=== PATIENT | male | born 1970 | race Two or more races ===

== ENCOUNTER 2016-11-03 20:14 | Emergency (ER) | payer SELFPAY ==
[~2016-11-03] VITALS: Ht 172.7 cm; Wt 72.6 kg
--- NOTE | 2016-11-03 20:15 | NUR ---
Dr Giles at bedside.
--- NOTE | 2016-11-03 20:17 | NUR ---
xr at bedside.
--- NOTE | 2016-11-03 20:17 | NUR ---
started a saline lock on right ac g18, blood drawn and sent to lab.
--- NOTE | 2016-11-03 20:20 | NUR ---
xr at bedside.
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
[2016-11-03 21:14] LABS: BASOPHILS # (AUTO) 0.1 /CMM (0.0-0.2); BASOPHILS % (AUTO) 0.6 % (0.0-2.0); EOSINOPHILS # (AUTO) 0.3 /CMM (0.0-0.7); EOSINOPHILS % (AUTO) 3.9 % (0.0-6.0); HEMATOCRIT 40 % (39-51); HEMOGLOBIN 13.4 g/dL (13.5-17.5); LYMPHOCYTES # (AUTO) 2.5 /CMM (0.8-4.8); LYMPHOCYTES % (AUTO) 28.2 % (20.0-44.0); MEAN CORPUSCULAR HEMOGLOBIN 32 PG (26.0-33.0); MEAN CORPUSCULAR HGB CONC 34 g/dl (31.0-36.0); MEAN CORPUSCULAR VOLUME 93 fL (80-96); MONOCYTES # (AUTO) 0.5 /CMM (0.1-1.30); MONOCYTES % (AUTO) 5.3 % (2.0-12.0); NEUTROPHILS # (AUTO) 5.4 /CMM (1.8-8.9); PLATELET COUNT (AUTO) 314 /CMM (150-450); RDW COEFFICIENT OF VARIATION 13.4 (11.5-15.0); RED BLOOD CELL COUNT(AUTO) 4.26 MIL/uL (4.5-6.0); WHITE BLOOD COUNT (AUTO) 8.8 K/uL (4.3-11.0)
--- NOTE | 2016-11-03 21:22 | NUR ---
lapd at bedside.
[2016-11-03 21:51] LABS: ALBUMIN 3.8 g/dL (3.4-5.0); BILIRUBIN,TOTAL 0.3 mg/dL (0.2-1.0); CALCIUM, SERUM 8.6 mg/dL (8.5-10.1); CREATININE 1.1 mg/dL (0.6-1.3); POTASSIUM 3.7 mmol/L (3.5-5.1); TOTAL PROTEIN, SERUM 7.2 g/dL (6.4-8.2)
[2016-11-03] MEDS ORDERED: IV NS 0.9% 250 ML IV ONE (21:52)
[2016-11-03] MEDS ORDERED: IOHEXOL-300 100 ML VIAL IV ONE (21:52)
--- NOTE | 2016-11-03 22:04 | NUR ---
patient back from ct.
[2016-11-03] MEDS ORDERED: ACETAMINOPHEN ES 500 MG TABLET ONE (22:29)
[2016-11-03] MEDS ORDERED: ACETAMINOPHEN ES 500 MG TABLET PO ONE (22:30)
--- NOTE | 2016-11-03 23:09 | NUR ---
IV removed. Catheter intact and site benign. Pressure and 4x4 applied to site. No bleeding noted. Patient discharged to home in stable condition. Written and verbal after care instructions given. Patient verbalizes understanding of instruction. Patient wheeled to private car, family to take patient home.
[2016-11-03 23:10] VITALS: BP 132/77
== END 2016-11-03 23:10 | disposition home or self-care (01) ==
LOC: ER 20:17
DX: S93.402A Sprain of unspecified ligament of left ankle, initial encounter (principal); S30.1XXA Contusion of abdominal wall, initial encounter; V43.52XA Car driver injured in collision with other type car in traffic accident, initial encounter; Y93.89 Activity, other specified; Y92.413 State road as the place of occurrence of the external cause; Y99.8 Other external cause status
CPT/HCPCS: 36415; 71010; 73610; 74160; 80048; 80076; 83690; 85025; 99285; A4606; J7050; Q9967; Z7610